=== PATIENT | male | born 1995 | race Caucasian/White ===

== ENCOUNTER 2021-06-14 14:34 | Emergency (ER) | payer OTHER ==
[~2021-06-14] VITALS: Ht 185.4 cm; Wt 75.0 kg
[2021-06-14 15:33] VITALS: BP 119/62
[2021-06-14] MEDS ORDERED: LIDOCAINE/EPI/TETRACAINE TOPICAL GEL 3 ML. TP ONE (15:45)
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
== END 2021-06-14 16:37 | disposition home or self-care (01) ==
LOC: ER 14:34
DX: S01.01XA Laceration without foreign body of scalp, initial encounter (principal); Y04.2XXA Assault by strike against or bumped into by another person, initial encounter; Y93.89 Activity, other specified; Y92.89 Other specified places as the place of occurrence of the external cause; Y99.8 Other external cause status
CPT/HCPCS: 12001; 70450; 99284-25